=== PATIENT | female | born 1945 | race Caucasian/White ===

== ENCOUNTER → 2019-03-29 | Outpatient (CLI) | payer MEDICARE ==
[2019-03-29 14:21] LABS: Stool Occult Bld Immuno 1 Negative (NEGATIVE)
== END ==
LOC: LAB EV 04:45
PROVIDERS: Student in an Organized Health Care Education/Training Program
DX: Z12.11 Encounter for screening for malignant neoplasm of colon (principal); Z12.12 Encounter for screening for malignant neoplasm of rectum
CPT/HCPCS: G0328

== ENCOUNTER → 2020-01-17 | Outpatient (CLI) | payer MEDICARE ==
[2020-01-17 12:31] LABS: Creatinine, Urine Random 83.4 mg/dL (27.00-270.00)
[2020-01-17 12:34] LABS: Microalb/Creat Ratio UR, Rand 17.746 mg/g (0.000-30.000); Microalbumin, Random Urine 14.8 mg/L (0.000-20.000)
== END ==
LOC: LAB EV 07:15 → LAB SHORT 07:15
PROVIDERS: Student in an Organized Health Care Education/Training Program
DX: E11.9 Type 2 diabetes mellitus without complications (principal)
CPT/HCPCS: 82043; 82570

== ENCOUNTER → 2021-12-23 | Outpatient (CLI) | payer MEDICARE | LOC: LAB SHORT 15:11 | DX: R30.9 Painful micturition, unspecified (principal) | CPT/HCPCS: 87086 ==